=== PATIENT | female | born 1970 | race Caucasian/White ===

== ENCOUNTER 2019-06-10 20:16 | Emergency (ER) | payer OTHER ==
[~2019-06-10] VITALS: Ht 172.7 cm; Wt 78.9 kg
[2019-06-10 20:30] VITALS: Ht 172.7 cm; Wt 78.9 kg
[2019-06-10 20:46] LABS: BASOPHIL % 0.6 % (0-2); RED CELL DISTRIBUTION WIDTH 12.3 % (11.5-14.5)
[2019-06-10 20:47] LABS: PLATELET COUNT 475 x10^3mcL (130-400)
[2019-06-10 20:56] LABS: CALCIUM 8.3 mg/dL (8.5-10.1); CARBON DIOXIDE 22.3 mmol/L (21-32); CHLORIDE SERUM 106 mmol/L (98-107); CREATININE SERUM 0.9 mg/dL (0.6-1.0); GFR1 > 60 mL/min; GLUCOSE SERUM 137 mg/dL (74-106); POTASSIUM SERUM 3.2 mmol/L (3.5-5.1); SODIUM SERUM 143 mmol/L (136-145)
[2019-06-10 21:00] LABS: ALBUMIN 3.5 g/dL (3.4-5.0); ALKALINE PHOSPHATASE 49 U/L (46-116); ALT/SGPT 13 U/L (14-59); AST/SGOT 5 U/L (15-37); BILIRUBIN TOTAL 0.23 mg/dL (0.20-1.00); TOTAL PROTEIN, SERUM 7.4 g/dL (6.4-8.2)
[2019-06-10 22:22] LABS: AMPHETAMINE QUAL UR NONE DETECTED (See below)
[2019-06-10 23:15] VITALS: BP 121/79
== END 2019-06-10 23:15 | disposition home or self-care (01) ==
LOC: ED 20:16
PROVIDERS: Emergency Medicine
DX: R55 Syncope and collapse (principal); R10.30 Lower abdominal pain, unspecified; R19.7 Diarrhea, unspecified; Z91.040 Latex allergy status
CPT/HCPCS: G0480; J7030; Q0092